=== PATIENT | female | born 1940 | race African-American/Black ===

== ENCOUNTER 2017-09-01 06:27 | Emergency (ER) | payer MEDICARE, BC ==
[~2017-09-01] VITALS: Ht 162.6 cm; Wt 58.0 kg
[2017-09-01] MEDS ORDERED: IBUPROFEN 600MG TABLET PO ONE (11:00)
[2017-09-01 12:21] VITALS: BP 118/69
== END 2017-09-01 12:25 | disposition home or self-care (01) ==
LOC: ER 06:27
DX: M79.671 Pain in right foot (principal); M54.5 Low back pain; J45.909 Unspecified asthma, uncomplicated; W18.30XA Fall on same level, unspecified, initial encounter; Y93.89 Activity, other specified; Y99.8 Other external cause status; Y92.89 Other specified places as the place of occurrence of the external cause; Z88.2 Allergy status to sulfonamides; Z88.8 Allergy status to other drugs, medicaments and biological substances
CPT/HCPCS: 72100; 72220; 73620; 99284